=== PATIENT | female | born 1960 | race Caucasian/White ===

== ENCOUNTER 2018-09-13 02:42 | Emergency (ER) | payer MEDICARE ==
--- NOTE | 2018-09-13 03:50 | ER Document Report ---
ED General - General Chief Complaint: Leg Pain Stated Complaint: LEG PAIN Time Seen by Provider: 09/13/18 03:38 Notes: Patient is a pleasant 38-year-old female presents with complaint of pain over the lateral aspect of the left knee. She says she was working in house all day and on her feet all day long. She says she laid down on a couch and when she went to get up off the couch she had severe pain in the lateral aspect of her left knee. Since then she has had this continued pain and is worse whenever she tries to bear weight on her left leg. No numbness or weakness into the leg. No fevers. No swelling. No other complaints at this time. She denies a specific injury. Patient took Motrin at home without relief. TRAVEL OUTSIDE OF THE [place] IN LAST 30 DAYS: No - Related Data Allergies/Adverse Reactions: acetaminophen [From Percocet] Adverse Reaction (Verified 09/13/18 04:23) oxycodone [From Percocet] Adverse Reaction (Verified 09/13/18 04:23) Past Medical History - Social History Smoking Status: Current Every Day Smoker Frequency of alcohol use: None Drug Abuse: None Family History: Reviewed & Not Pertinent Review of Systems - Review of Systems Notes: My Normal Review Basic REVIEW OF SYSTEMS: CONSTITUTIONAL : Denies fever, chills, or sweats. Denies recent illness. MUSCULOSKELETAL: Pain over lateral left knee. SKIN: Denies rash or skin lesions. NEUROLOGICAL: Denies sensory or motor loss. ALL OTHER SYSTEMS REVIEWED AND NEGATIVE. Physical Exam - Vital signs Vitals: Temp Pulse Resp BP Pulse Ox 97.6 F 95 14 134/77 H 97 09/13/18 02:46 09/13/18 02:46 09/13/18 02:46 09/13/18 02:46 09/13/18 02:46 - Notes Notes: General Appearance: Well nourished, alert, cooperative, no acute distress, mild to moderate obvious discomfort. Vitals: reviewed, See vital signs table. Extremities: Patient has pain to palpation that is only over the fibular head. The remainder of the leg is nontender. There is no swelling or edema in the leg. No redness or abnormal warmth. She has good range of motion of her knee but has severe pain whenever I push over the fibular head. Good distal pulses in the left lower extremity. Skin: warm, dry, appropriate color, no rash Neuro: speech clear, oriented x 3, normal affect, responds appropriately to questions. Course - Re-evaluation Re-evalutation: 09/13/18 05:01 Patient has pain is pinpoint only over the fibular head. Suspect she has a superior talofibular ligament strain. The remainder of her leg is completely nontender. She has no pain to palpation over the posterior aspect of the leg. Think DVT is highly unlikely. She has no swelling or edema. There is no redness or abnormal warmth to cause concern for infection. I informed her that anti-inflammatories and ice packs would be the treatment of choice at this time. Encouraged her to stay nonweightbearing off that so that has time to rest. She refuses to use crutches and says she would prefer just to try and walk. Informed that she needs to follow-up with her doctor or the orthopedist in 1 week for reevaluation if she still having any pain. Patient to return to ER if there is any redness, swelling, abnormal warmth, signs of infection, or spreading of the pain. Patient agrees with plan will be discharged home. Dictation of this chart was performed using voice recognition software; therefore, there may be some unintended grammatical errors. - Vital Signs Vital signs: Temp Pulse Resp BP Pulse Ox 97.6 F 95 14 134/77 H 97 09/13/18 02:46 09/13/18 02:46 09/13/18 02:46 09/13/18 02:46 09/13/18 02:46 Discharge - Discharge Clinical Impression: Sprain of superior tibiofibular ligament Qualifiers: Encounter type: initial encounter Laterality: left Qualified Code(s): S83.62XA - Sprain of the superior tibiofibular joint and ligament, left knee, initial encounter Condition: Good Disposition: HOME, SELF-CARE Additional Instructions: Please take 600mg of Ibuprofen every 6 hours with food and tylenol 500mg every 4 hours. Please try to limit the amount of weight bearing you do on your leg. Please apply ice packs to the lateral aspect of your left knee for 20 minutes at a time. Please follow up with your doctor or the orthopedist (Dr. Proctor) for reevaluation in 1 week. Please return to the ER if you have worsening pain, redness, swelling, fevers, or feel that your symptoms are worsening. Please be aware that Gloria does have Tylenol (acetaminophen) in it. Please make sure you do not take more than 4000 mg of acetaminophen a day. Do not drive or care for children after you have taken this medication they will make you sleepy and sometimes impair judgment. Forms: Return to Work Referrals: TRISTAN PROCTOR MD [ACTIVE STAFF] - Follow up in 1 week
--- NOTE | 2018-09-13 04:26 | RADIOLOGY REPORT (SQ) ---
CLINICAL HISTORY: lateral knee pain COMPARISON: None. TECHNIQUE: XR KNEE 4 OR MORE VIEWS 09/13/2018 3:47 AM [employer] FINDINGS: There is no fracture. There is mild narrowing of the medial knee compartment. Soft tissues are unremarkable. IMPRESSION: No acute osseous findings.
[2018-09-13] MEDS ORDERED: HYDROCODONE/ACETAMINOPHEN 5-325 MG (6 TAB/ER DISP) PO PRN (04:54)
[2018-09-13 05:08] VITALS: BP 130/84
== END 2018-09-13 05:09 | disposition home or self-care (01) ==
LOC: ER 02:42
DX: S83.62XA Sprain of the superior tibiofibular joint and ligament, left knee, initial encounter (principal); X58.XXXA Exposure to other specified factors, initial encounter; F17.200 Nicotine dependence, unspecified, uncomplicated
CPT/HCPCS: 99283; 73564; A9270

== ENCOUNTER 2019-11-03 12:54 | Inpatient (IN) | payer MEDICARE, MEDICAID ==
--- NOTE | 2019-11-03 13:23 | EKG REPORT ---
SEVERITY:- ABNORMAL ECG - SINUS TACHYCARDIA RIGHT ATRIAL ABNORMALITY NONSPECIFIC ST-T CHANGES- INFERIOR LEADS : Confirmed by: Gamal Murcia MD 03-Nov-2019 13:22:08
--- NOTE | 2019-11-03 14:22 | ER Document Report ---
ED Medical Screen (RME) - General Chief Complaint: Chest Pain Stated Complaint: CHEST PAIN Time Seen by Provider: 11/03/19 14:18 Mode of Arrival: Ambulatory Information source: Patient Notes: 59-year-old female presents to ED for chest pain today. She states she started with a cough and cold congestion 2 weeks ago went to her doctor got put on some medicine and some antibiotics. She states Friday night she started with a migraine went to bed woke up during the night with chest pain fever chills and body aches. She states she has had chest pain body aches and fever since Friday. She states that she tried to go to the primary doctor again and they told her to please go to the emergency room because it sounded like she needed more than what they could give in her office. Patient is alert oriented, lungs clear to auscultation at this time. I have greeted and performed a rapid initial assessment of this patient. A comprehensive ED assessment and evaluation of the patient, analysis of test results and completion of medical decision making process will be conducted by an additional ED providers. TRAVEL OUTSIDE OF THE [place] IN LAST 30 DAYS: No - Related Data Allergies/Adverse Reactions: acetaminophen [From Percocet] Adverse Reaction (Verified 11/03/19 14:15) oxycodone [From Percocet] Adverse Reaction (Verified 11/03/19 14:15) Past Medical History Renal/ Medical History: Denies: Hx Peritoneal Dialysis Physical Exam - Vital signs Vitals: Temp Pulse Resp BP Pulse Ox 97.3 F 36 L 36 H 130/81 H 96 11/03/19 13:55 11/03/19 13:55 11/03/19 13:55 11/03/19 13:55 11/03/19 13:55 Course - Vital Signs Vital signs: Temp Pulse Resp BP Pulse Ox 97.3 F 36 L 36 H 130/81 H 96 11/03/19 13:55 11/03/19 13:55 11/03/19 13:55 11/03/19 13:55 11/03/19 13:55
--- NOTE | 2019-11-03 14:51 | RADIOLOGY REPORT (SQ) ---
EXAM DESCRIPTION: CHEST 2 VIEWS COMPLETED DATE/TIME: 11/03/2019 2:42 pm REASON FOR STUDY: Cough congestion fever chills chest pain COMPARISON: None. EXAM PARAMETERS: NUMBER OF VIEWS: Two views. TECHNIQUE: PA and lateral views of the chest were obtained.. RADIATION DOSE: NA LIMITATIONS: none FINDINGS: LUNGS AND PLEURA: Consolidative opacities in the right upper lobe. There is no sizable pl eural effusion or pneumothorax. MEDIASTINUM AND HILAR STRUCTURES: No mediastinal or hilar contour abnormality. HEART AND VASCULAR STRUCTURES: The cardiac silhouette and pulmonary vasculature are within normal pham its. BONES: No acute findings. HARDWARE: None in the chest. OTHER: No other finding. IMPRESSION: Consolidative opacities in the right upper lobe. Correlation with clinical findings is recommended to exclude a pneumonia. TECHNICAL DOCUMENTATION: JOB ID: [id number] 2010 [employer]- All Rights Reserved Reading location - IP/workstation name: [email or web address]
[2019-11-03 15:12] LABS: HEMATOCRIT 43.1 % (36.0-47.0); MEAN CORPUSCULAR HEMOGLOBIN 31.3 pg (27.0-33.4); MEAN CORPUSCULAR HGB CONC 34.9 g/dL (32.0-36.0); MEAN CORPUSCULAR VOLUME 90 fl (80-97); PLATELET COUNT 424 10^3/uL (150-450); RED CELL DISTRIBUTION WIDTH 13.1 % (11.5-14.0); WHITE BLOOD COUNT 29.5 10^3/uL (4.0-10.5)
[2019-11-03 15:19] LABS: APPEARANCE,URINE SLIGHTLY-CLOUDY; BILIRUBIN,URINE NEGATIVE (NEGATIVE); COLOR,URINE YELLOW; GLUCOSE, URINE 50 mg/dL (NEGATIVE); KETONES,URINE NEGATIVE (NEGATIVE); PROTEIN,URINE 100 mg/dL (NEGATIVE); URINE SPECIFIC GRAVITY 1.019; UROBILINOGEN,URINE NEGATIVE mg/dL (<2.0)
[2019-11-03 15:27] LABS: ALBUMIN 3.4 g/dL (3.5-5.0); ALKALINE PHOSPHATASE 149 U/L (38-126); ANION GAP 17 (5-19); ASPARTATE AMINO TRANSFERASE 18 U/L (14-36); BILIRUBIN,DIRECT 0.2 mg/dL (0.0-0.4); BILIRUBIN,TOTAL 0.4 mg/dL (0.2-1.3); BLOOD UREA NITROGEN 27 mg/dL (7-20); CARBON DIOXIDE 17 mmol/L (22-30); CHLORIDE 101 mmol/L (98-107); GLUCOSE 122 mg/dL (75-110); TOTAL PROTEIN 6.3 g/dL (6.3-8.2)
[2019-11-03 15:46] LABS: ABSOLUTE LYMPHOCYTES# (MANUAL) 0.6 10^3/uL (0.5-4.7); ABSOLUTE MONOCYTES # (MANUAL) 0.6 10^3/uL (0.1-1.4); BAND NEUTROPHILS % (MANUAL) 1 % (3-5); BASOPHILS % (MANUAL) 0 % (0-2); EOSINOPHILS % (MANUAL) 0 % (0-6); LYMPHOCYTES % (MANUAL) 2 % (13-45); MONOCYTES % (MANUAL) 2 % (3-13); PLATELET COMMENT ADEQUATE; SEGMENTED NEUTROPHILS % (MAN) 95 % (42-78); TOTAL CELLS COUNTED 100; TOXIC GRANULATION 1+
[2019-11-03] MEDS ORDERED: NORMAL SALINE 1000 ML 1,000 ML IV ONE (16:55)
[2019-11-03] MEDS ORDERED: IPRATROPIUM/ALBUTEROL 0.5-2.5 MG/3 ML AMPUL NEB ONE (17:06)
[2019-11-03] MEDS ORDERED: CEFTRIAXONE 1 GM/D5W RTU 1 GM/50 ML RTUPB IV ONE (17:06)
--- NOTE | 2019-11-03 17:31 | ER Document Report ---
Entered by PRESTON CARLIN SCRIBE 11/03/19 [id number] Acting as scribe for:JOSEPH NUNN MD ED General - General Chief Complaint: Headache Stated Complaint: CHEST PAIN Time Seen by Provider: 11/03/19 14:18 Mode of Arrival: Ambulatory Information source: Patient Notes: 59-year-old female presents to the emergency department with migraine and chest pain that has been going on for 3 days. Patient states that her symptoms started with a migraine and that night she started having right upper chest pain with body aches. Patient has had a poor appetite with no food or fluid uptake for 2 days. Patient denies cough. Patient reports seeing PCP last week for a UTI. Due to congestion, she was treated for an upper respiratory infection. Patient is not up to date on seasonal influenza vaccine. Patient has not traveled out of country recently. TRAVEL OUTSIDE OF THE [place] IN LAST 30 DAYS: No - Related Data Allergies/Adverse Reactions: oxycodone [From Percocet] Adverse Reaction (Verified 11/03/19 14:15) Home Medications: cymbalta. xanax. inhaler Past Medical History - General Information source: Patient - Social History Smoking Status: Current Every Day Smoker Cigarette use (# per day): Yes - 1 pack per day Chew tobacco use (# tins/day): No Smoking Education Provided: No Frequency of alcohol use: None Drug Abuse: None Family History: Reviewed & Not Pertinent Patient has suicidal ideation: No Patient has homicidal ideation: No Pulmonary Medical History: Reports: Hx COPD Psychiatric Medical History: Reports: Hx Depression Past Surgical History: Reports: Hx Inguinal Hernia, Hx Tonsillectomy, Hx Tubal Ligation - Immunizations History of Influenza Vaccine for 06/2019 - 10/2019 Season: No Review of Systems - Review of Systems Constitutional: No symptoms reported EENT: No symptoms reported Cardiovascular: See HPI, Chest pain Respiratory: See HPI. denies: Cough Gastrointestinal: No symptoms reported Genitourinary: No symptoms reported Female Genitourinary: No symptoms reported Musculoskeletal: No symptoms reported Skin: No symptoms reported Hematologic/Lymphatic: No symptoms reported Neurological/Psychological: See HPI, Headaches -: Yes All other systems reviewed and negative Physical Exam - Vital signs Vitals: Temp Pulse Resp BP Pulse Ox 97.3 F 121 H 36 H 130/81 H 96 11/03/19 13:55 11/03/19 13:55 11/03/19 13:55 11/03/19 13:55 11/03/19 13:55 - Notes Notes: Physical Exam: General: Alert, appears well. HEENT: Normocephalic. Atraumatic. PERRL. Extraocular movements intact. Oropharynx clear. Neck: Supple. Non-tender. Respiratory: Tachypnea. Wheezes and Rhonchi bilaterally. Cardiovascular: Tachycardic. Abdominal: Normal Inspection. Non-tender. No distension. Normal Bowel Sounds. Back: No gross abnormalities. Extremities: Moves all four extremities. Upper extremities: Normal inspection. Normal ROM. Lower extremities: Normal inspection. No edema. Normal ROM. Neurological: Normal cognition. AAOx4. Normal speech. Psychological: Normal affect. Normal Mood. Skin: Warm. Dry. Normal color. Course - Vital Signs Vital signs: Temp Pulse Resp BP Pulse Ox 98.0 F 92 18 120/58 L 100 11/04/19 23:00 11/04/19 23:00 11/04/19 23:00 11/04/19 23:00 11/04/19 23:00 - Laboratory Result Diagrams: 11/04/19 05:13 11/04/19 05:13 Laboratory results interpreted by me: 11/03/19 11/03/19 11/03/19 14:47 14:47 14:47 WBC 29.5 H Seg Neuts % (Manual) 95 H Band Neutrophils % 1 L Lymphocytes % (Manual) 2 L Monocytes % (Manual) 2 L Abs Neuts (Manual) 28.3 H Sodium 135.2 L Carbon Dioxide 17 L BUN 27 H Creatinine 2.13 H Est GFR ( Amer) 29 L Est GFR (MDRD) Non-Af 24 L Glucose 122 H Alkaline Phosphatase 149 H Albumin 3.4 L Lipase 20.0 L Urine Protein 100 H Urine Glucose (UA) 50 H Urine Blood SMALL H - Diagnostic Test Radiology reviewed: Image reviewed, Reports reviewed - Chest x-ray shows COPD with a large right upper lobe consolidation opacity - EKG Interpretation by Me EKG shows normal: Sinus rhythm, [place], Intervals, QRS Complexes, ST-T Waves Rate: Tachycardia - 110 P Waves: [place] When compared to previous EKG there are: Previous EKG unavailable - Consults Dr. Hayward Time consulted: 17:00 Consulted provider: will come to ER Critical Care Note - Critical Care Note Total time excluding time spent on procedures (mins): 35 Discharge - Discharge Clinical Impression: COPD with exacerbation, Dehydration, Acute kidney injury, Tachycardia, Tachypnea Pneumonia Qualifiers: Pneumonia type: due to unspecified organism Laterality: right Lung location: upper lobe of lung Qualified Code(s): J18.9 - Pneumonia, unspecified organism Leukocytosis Qualifiers: Leukocytosis type: bandemia Qualified Code(s): D72.825 - Bandemia Condition: Stable Disposition: ADMITTED INPATIENT Admitting Provider: Mainor (Hospitalist) Unit Admitted: Medical Floor I personally performed the services described in the documentation, reviewed and edited the documentation which was dictated to the scribe in my presence, and it accurately records my words and actions.
[2019-11-03] MEDS ORDERED: PROMETHAZINE HCL INJ 25 MG/1 ML VIAL IV PRN (17:46)
[2019-11-03] MEDS ORDERED: IPRATROPIUM/ALBUTEROL 0.5-2.5 MG/3 ML AMPUL NEB PRN (17:46)
[2019-11-03] MEDS ORDERED: ONDANSETRON HCL INJ/PF 4 MG/2 ML SDV IV PRN (17:46)
[2019-11-03] MEDS ORDERED: MORPHINE SULFATE 10 MG/ML INJ IV PRN (17:51)
[2019-11-03] MEDS ORDERED: HYDRALAZINE HCL INJ/PF 20 MG/1 ML SDV IV PRN (18:00)
[2019-11-03] MEDS ORDERED: METOPROLOL TARTRATE PF/INJ 5 MG/5 ML SDV IV PRN (18:00)
[2019-11-03] MEDS ORDERED: LORAZEPAM INJ 2 MG/1 ML VIAL IV PRN (18:01)
[2019-11-03] MEDS ORDERED: PIPERACILLIN/TAZOBACTAM 3.375 GM VIAL IV ONE (18:05)
--- NOTE | 2019-11-03 18:07 | PDOC H&P ---
History of Present Illness Admission Date/PCP: 11/03/19 17:50 History of Present Illness: ANETTE BOWMAN is a 59 year old female past medical history of tobacco abuse, non-oxygen dependent COPD presenting to ED complaining of right-sided pleuritic chest pain, fever and chills. Patient is stating that about 3 weeks ago she was having foul-smelling urine, went to PCP sample was taken, culture came back negative, and the same time she was noted to be coughing and feeling congested, was a started cefdinir and steroids and albuterol inhaler, she felt somewhat better however after an tibiotic finished she started to notice recurrence of nonproductive cough associated with flulike symptoms, some [id number] medication did not feel any better, the next day started feeling right-sided sharp, pleuritic chest pain, worse with breathing and movement, subjective fever and chills, one episode of vomiting and diarrhea with nausea and persistent low appetite. In ED she was found to have significant neutrophilic leukocytosis, chest x-ray positive for consolidation in the right upper lobe and elevated BUN and creatinine. Hospitalist was consulted for admission. Past Medical History Pulmonary Medical History: Reports: Chronic Obstructive Pulmonary Disease (COPD) Psychiatric Medical History: Reports: Depression Past Surgical History Past Surgical History: Reports: Tonsillectomy, Tubal Ligation Social History Smoking Status: Current Every Day Smoker Electronic Cigarette use?: No Family History Family History: Reviewed & Not Pertinent Parental Family History Reviewed: Yes Children Family History Reviewed: Yes Sibling(s) Family History Reviewed.: Yes Medication/Allergy Home Medications: Albuterol Sulfate [Ventolin Hfa 8 gm Mdi] 2 puff IH Q6HP PRN 11/03/19 Alprazolam [Xanax 0.5 mg Tablet] 0.5 mg PO QIDP PRN 11/03/19 Duloxetine HCl [Cymbalta] 60 mg PO BID 11/03/19 Fluticasone/Umeclidin/Vilanter [Trelegy 100-62.5-25 Mcg Ellipta 14 Dose/Dpi] 1 puff IH DAILY 11/03/19 Lurasidone HCl [Latuda 60 mg Tablet] 60 mg PO DAILY 11/03/19 Allergies/Adverse Reactions: oxycodone [From Percocet] Adverse Reaction (Verified 03/04/20 14:15) Review of Systems Review of Systems: as per hpi Physical Exam Vital Signs: Temp Pulse Resp BP Pulse Ox 97.3 F 121 H 36 H 130/81 H 96 11/03/19 13:55 11/03/19 13:55 11/03/19 13:55 11/03/19 13:55 11/03/19 13:55 Intake & Output 11/02/19 11/03/19 11/04/19 06:59 06:59 06:59 Weight 62.7 kg General appearance: PRESENT: no acute distress, well-developed, well-nourished Head exam: PRESENT: atraumatic, normocephalic Neck exam: ABSENT: carotid bruit, JVD, lymphadenopathy, thyromegaly Respiratory exam: PRESENT: clear to auscultation fabiana, symmetrical, tachypnea, other - Shallow breathing.. ABSENT: rales, rhonchi, wheezes Cardiovascular exam: PRESENT: RRR, other - TTP right anterior chest.. ABSENT: diastolic murmur, rubs, systolic murmur GI/Abdominal exam: PRESENT: normal bowel sounds, soft. ABSENT: distended, guarding, mass, organolmegaly, rebound, tenderness Neurological exam: PRESENT: alert, awake, oriented to person, oriented to place, oriented to time, oriented to situation, CN II-XII grossly intact. ABSENT: motor sensory deficit Skin exam: PRESENT: dry, intact, warm. ABSENT: cyanosis, rash Results Laboratory Results: 11/03/19 14:47 11/03/19 14:47 11/03/19 11/03/19 11/03/19 14:47 14:47 14:47 WBC 29.5 H RBC 4.80 Hgb 15.0 Hct 43.1 MCV 90 MCH 31.3 MCHC 34.9 RDW 13.1 Plt Count 424 Seg Neutrophils % Not Reportable Sodium 135.2 L Potassium 4.0 Chloride 101 Carbon Dioxide 17 L Anion Gap 17 BUN 27 H Creatinine 2.13 H Est GFR ( Amer) 29 L Glucose 122 H Calcium 9.0 Total Bilirubin 0.4 AST 18 Alkaline Phosphatase 149 H Total Protein 6.3 Albumin 3.4 L Lipase 20.0 L Urine Color YELLOW Urine Appearance SLIGHTLY-CLOUDY Urine pH 5.0 Ur Specific [place] 1.019 Urine Protein 100 H Urine Glucose (UA) 50 H Urine Ketones NEGATIVE Urine Blood SMALL H Urine RBC (Auto) 1 11/03/19 14:47 Troponin I < 0.012 Impressions: Chest X-Ray 11/03/19 14:23 IMPRESSION: Consolidative opacities in the right upper lobe. Correlation with clinical findings is recommended to exclude a pneumonia. Assessment and Plan - Diagnosis (1) Pneumonia Qualifiers: Laterality: right Lung location: upper lobe of lung Is this a current diagnosis for this admission?: Yes Plan: Most likely community-acquired due to gram-positive cocci including Streptococcus pneumonia. Presented with pleuritic chest pain, tachypnea, neutrophilic leukocytosis, productive cough, CXR right upper lobe consolidation. Failed outpatient antibiotic therapy. Rapid flu negative. Admit to floor, check for Haemophilus aneurysm type A/B, broad-spectrum empiric IV antibiotics, sputum culture, blood culture. (2) Chronic obstructive pulmonary disease with acute exacerbation Is this a current diagnosis for this admission?: Yes Plan: Acutely exacerbated mostly due to underlying pneumonia. Duo nebs, pulmonary toileting, flutter valve, incentive spirometry, empiric IV antibiotics, PRN BiPAP. (3) Acute kidney injury Is this a current diagnosis for this admission?: Yes Plan: Prerenal most like due to low p.o. intake. Admit to floor, cautious volume resuscitation guided by volume status. Monitor volume status and electrolytes replace as needed. Avoid nephrotoxic meds. (4) Dehydration Is this a current diagnosis for this admission?: Yes Plan: Most likely due to low p.o. intake complicated by recent vomiting. Volume resuscitation guided by volume status. Monitor vitals.
[2019-11-03] MEDS ORDERED: ALPRAZOLAM 0.5 MG TABLET PO PRN (18:08)
[2019-11-03] MEDS: PIPERACILLIN SODIUM/TAZOBACTAM 3.375 GM in NORMAL SALINE 100 ML IV SCH ×2 (18:14→23:50)
[2019-11-03] MEDS: NORMAL SALINE 1000 ML 1,000 ML IV PRN (19:57)
[2019-11-03] MEDS: DOCUSATE SODIUM 100 MG CAPSULE PO SCH (20:04)
[2019-11-03] MEDS: PANTOPRAZOLE SODIUM 40 MG TABLET.DR PO SCH (20:04)
[2019-11-03] MEDS: NICOTINE 14 MG/24 HR PATCH.TD24 TD SCH (20:04)
[2019-11-03 20:21] LABS: A TYPE INFLUENZA AG NEGATIVE (NEGATIVE); B INFLUENZA AG NEGATIVE (NEGATIVE)
[2019-11-03] MEDS: IPRATROPIUM/ALBUTEROL 0.5-2.5 MG/3 ML AMPUL NEB SCH (20:27)
[2019-11-03] MEDS: DULOXETINE HCL 30 MG CAPSULE.DR PO SCH (21:29)
[2019-11-03] MEDS ORDERED: ACETAMINOPHEN 325 MG TABLET ONE (23:44)
[2019-11-04] MEDS ORDERED: MORPHINE SULFATE 10 MG/ML INJ IV ONE (01:00)
[2019-11-04] MEDS: NORMAL SALINE 1000 ML 1,000 ML IV PRN ×3 (02:48→17:19)
[2019-11-04] MEDS: TEMAZEPAM 15 MG CAPSULE PO PRN (02:50)
[2019-11-04] MEDS: PIPERACILLIN SODIUM/TAZOBACTAM 3.375 GM in NORMAL SALINE 100 ML IV SCH ×3 (05:04→17:14)
[2019-11-04] MEDS: PANTOPRAZOLE SODIUM 40 MG TABLET.DR PO SCH ×2 (05:04→17:14)
[2019-11-04 05:46] LABS: ABSOLUTE EOSINOPHILS # (AUTO) 0.1 10^3/uL (0.0-0.6); ABSOLUTE LYMPHOCYTES (AUTO) 1.6 10^3/uL (0.5-4.7); ABSOLUTE MONOCYTES (AUTO) 0.8 10^3/uL (0.1-1.4); ABSOLUTE NEUT (AUTO) 16.4 10^3/uL (1.7-8.2); BASOPHILS % (AUTO) 0.2 % (0-2); EOSINOPHILS % (AUTO) 0.3 % (0-6); HEMATOCRIT 34.3 % (36.0-47.0); LYMPHOCYTES % (AUTO) 8.6 % (13-45); MEAN CORPUSCULAR HEMOGLOBIN 30.4 pg (27.0-33.4); MEAN CORPUSCULAR HGB CONC 34.2 g/dL (32.0-36.0); MEAN CORPUSCULAR VOLUME 89 fl (80-97); MONOCYTES % (AUTO) 4.1 % (3-13); PLATELET COUNT 362 10^3/uL (150-450); RED BLOOD COUNT 3.87 10^6/uL (3.72-5.28); RED CELL DISTRIBUTION WIDTH 13.3 % (11.5-14.0); SEGMENTED NEUTROPHILS % (AUTO) 86.8 % (42-78); TOTAL CELLS COUNTED % (AUTO) 100 %; WHITE BLOOD COUNT 18.9 10^3/uL (4.0-10.5)
[2019-11-04 05:51] LABS: HEMOGLOBIN 11.7 g/dL (12.0-15.5)
[2019-11-04 06:01] LABS: ALBUMIN 2.5 g/dL (3.5-5.0); ALKALINE PHOSPHATASE 91 U/L (38-126); ANION GAP 12 (5-19); ASPARTATE AMINO TRANSFERASE 14 U/L (14-36); BILIRUBIN,DIRECT 0.4 mg/dL (0.0-0.4); BILIRUBIN,TOTAL 0.4 mg/dL (0.2-1.3); BLOOD UREA NITROGEN 29 mg/dL (7-20); CALCIUM 7.6 mg/dL (8.4-10.2); CARBON DIOXIDE 16 mmol/L (22-30); CHLORIDE 110 mmol/L (98-107); CHOLESTEROL 130.16 mg/dL (0-200); GLUCOSE 93 mg/dL (75-110); POTASSIUM 3.1 mmol/L (3.6-5.0); TOTAL PROTEIN 5.1 g/dL (6.3-8.2); TRIGLYCERIDES 264 mg/dL (<150)
[2019-11-04 06:10] LABS: VLDL CHOLESTEROL 52.8 mg/dL (10-31)
[2019-11-04 06:12] LABS: DIRECT LDL 48 mg/dL (<100)
[2019-11-04] MEDS: IPRATROPIUM/ALBUTEROL 0.5-2.5 MG/3 ML AMPUL NEB SCH ×3 (08:29→20:09)
[2019-11-04] MEDS ORDERED: POTASSIUM CHLORIDE 10 MEQ TABLET.ER PO ONE (08:30)
[2019-11-04] MEDS: FLUTICASONE/UMECLIDIN/VILANTER 100-62.5-25 MCG/DOSE IH SCH (10:22)
[2019-11-04] MEDS: LURASIDONE HCL 60 MG TABLET PO SCH (10:22)
[2019-11-04] MEDS: NICOTINE 14 MG/24 HR PATCH.TD24 TD SCH (10:22)
[2019-11-04] MEDS: DOCUSATE SODIUM 100 MG CAPSULE PO SCH ×2 (10:22→17:14)
[2019-11-04] MEDS: DULOXETINE HCL 30 MG CAPSULE.DR PO SCH ×2 (10:22→21:52)
[2019-11-04] MEDS: ENOXAPARIN SODIUM INJ 30 MG/0.3 ML DISP.SYRIN SUBCUT SCH (10:29)
--- NOTE | 2019-11-04 12:40 | PDOC PROGRESS REPORT ---
Subjective Progress Note for:: 11/04/19 Subjective:: ANETTE BOWMAN is a 59 year old female past medical history of tobacco abuse, non-oxygen dependent COPD presenting to ED complaining of right-sided pleuritic chest pain, fever and chills. Patient is stating that about 3 weeks ago she was having foul-smelling urine, went to PCP sample was taken, culture came back negative, and the same time she was noted to be coughing and feeling congested, was a started cefdinir and steroids and albuterol inhaler, she felt somewhat better however after antibiotic finished she started to notice recurrence of nonproductive cough associated with flulike symptoms, some rpas-qov-ngykiiz medication did not feel any better, the next day started feeling right-sided sharp, pleuritic chest pain, worse with breathing and movement, subjective fever and chills, one episode of vomiting and diarrhea with nausea and persistent low appetite. In ED she was found to have significant neutrophilic leukocytosis, chest x-ray positive for consolidation in the right upper lobe and elevated BUN and creatinine. Hospitalist was consulted for admission. 11/04/2019. No acute events overnight. Patient denies having any fever overnight however still complaining of productive cough and right sided pleuritic chest pain, denies any fever, chills, nausea, vomiting, diarrhea, constipation or any urinary symptoms. Reason For Visit: PNEUMONIA,IGLESIA Physical Exam Vital Signs: Temp Pulse Resp BP Pulse Ox 97.4 F 85 18 122/69 93 11/04/19 07:53 11/04/19 08:29 11/04/19 08:29 11/04/19 07:53 11/04/19 08:29 Intake & Output 11/03/19 11/04/19 11/05/19 06:59 06:59 06:59 Intake Total 2350 1000 Output Total 1000 Balance 2350 0 Weight 63.4 kg 63.4 kg General appearance: PRESENT: no acute distress, well-developed, well-nourished Head exam: PRESENT: atraumatic, normocephalic Respiratory exam: PRESENT: clear to auscultation fabiana, wheezes - Right upper lung. ABSENT: rales, rhonchi Cardiovascular exam: PRESENT: RRR. ABSENT: diastolic murmur, rubs, systolic murmur GI/Abdominal exam: PRESENT: normal bowel sounds, soft. ABSENT: distended, guarding, mass, organolmegaly, rebound, tenderness Neurological exam: PRESENT: alert, awake, oriented to person, oriented to place, oriented to time, oriented to situation, CN II-XII grossly intact. ABSENT: motor sensory deficit Results Laboratory Results: 11/04/19 05:13 11/04/19 05:13 11/03/19 11/03/19 11/03/19 14:47 14:47 14:47 WBC 29.5 H RBC 4.80 Hgb 15.0 Hct 43.1 MCV 90 MCH 31.3 MCHC 34.9 RDW 13.1 Plt Count 424 Seg Neutrophils % Not Reportable Sodium 135.2 L Potassium 4.0 Chloride 101 Carbon Dioxide 17 L Anion Gap 17 BUN 27 H Creatinine 2.13 H Est GFR ( Amer) 29 L Glucose 122 H Lactic Acid Calcium 9.0 Magnesium Total Bilirubin 0.4 AST 18 Alkaline Phosphatase 149 H Total Protein 6.3 Albumin 3.4 L Triglycerides Cholesterol LDL Cholesterol Direct VLDL Cholesterol HDL Cholesterol Lipase 20.0 L TSH PTH Intact Urine Color YELLOW Urine Appearance SLIGHTLY-CLOUDY Urine pH 5.0 Ur Specific [place] 1.019 Urine Protein 100 H Urine Glucose (UA) 50 H Urine Ketones NEGATIVE Urine Blood SMALL H Urine RBC (Auto) 1 11/03/19 11/03/19 11/04/19 17:15 18:46 05:13 WBC 18.9 H RBC 3.87 Hgb 11.7 L D Hct 34.3 L MCV 89 MCH 30.4 MCHC 34.2 RDW 13.3 Plt Count 362 Seg Neutrophils % 86.8 H Sodium Potassium Chloride Carbon Dioxide Anion Gap BUN Creatinine Est GFR ( Amer) Glucose Lactic Acid 1.8 Calcium Magnesium Total Bilirubin AST Alkaline Phosphatase Total Protein Albumin Triglycerides Cholesterol LDL Cholesterol Direct VLDL Cholesterol HDL Cholesterol Lipase TSH PTH Intact 73.7 H Urine Color Urine Appearance Urine pH Ur Specific [place] Urine Protein Urine Glucose (UA) Urine Ketones Urine Blood Urine RBC (Auto) 11/04/19 11/04/19 05:13 05:13 WBC RBC Hgb Hct MCV MCH MCHC RDW Plt Count Seg Neutrophils % Sodium 138.1 Potassium 3.1 L Chloride 110 H Carbon Dioxide 16 L Anion Gap 12 BUN 29 H Creatinine 1.95 H Est GFR ( Amer) 32 L Glucose 93 Lactic Acid Calcium 7.6 L Magnesium 2.2 Total Bilirubin 0.4 AST 14 Alkaline Phosphatase 91 Total Protein 5.1 L Albumin 2.5 L Triglycerides 264 H Cholesterol 130.16 LDL Cholesterol Direct 48 VLDL Cholesterol 52.8 H HDL Cholesterol 16 L Lipase TSH 1.92 PTH Intact Urine Color Urine Appearance Urine pH Ur Specific [place] Urine Protein Urine Glucose (UA) Urine Ketones Urine Blood Urine RBC (Auto) 11/03/19 17:15 Blood Blood Culture (PCR) - Final 11/03/19 14:47 Troponin I < 0.012 Impressions: Chest X-Ray 11/03/19 14:23 IMPRESSION: Consolidative opacities in the right upper lobe. Correlation with clinical findings is recommended to exclude a pneumonia. Assessment and Plan - Diagnosis (1) Pneumonia Qualifiers: Laterality: right Lung location: upper lobe of lung Qualified Code(s): J18.9 - Pneumonia, unspecified organism Is this a current diagnosis for this admission?: Yes Plan: Most likely community-acquired due to gram-positive cocci including Streptococcus pneumonia. Presented with pleuritic chest pain, tachypnea, neutrophilic leukocytosis, productive cough, CXR right upper lobe consolidation. Failed outpatient antibiotic therapy. Rapid flu negative. Day 2 IV antibiotics. Day 2 IV Zosyn. Received 1 dose of ceftriaxone on admission. Continue broad-spectrum empiric IV antibiotics. Follow-up sputum and blood culture. (2) Chronic obstructive pulmonary disease with acute exacerbation Is this a current diagnosis for this admission?: Yes Plan: Acutely exacerbated mostly due to underlying pneumonia. Duo nebs, pulmonary toileting, flutter valve, incentive spirometry, empiric IV antibiotics, PRN BiPAP. (3) Acute kidney injury Is this a current diagnosis for this admission?: Yes Plan: Mild improvement. Prerenal most like due to low p.o. intake. Elevated PTH will suggest patient may have had some CKD. Admit to floor, cautious volume resuscitation guided by volume status. Monitor volume status and electrolytes replace as needed. Avoid nephrotoxic meds. (4) Dehydration Is this a current diagnosis for this admission?: Yes Plan: Volume replete. Most likely due to low p.o. intake complicated by recent vomiting. Volume resuscitation guided by volume status. Monitor vitals.
[2019-11-05] MEDS: PIPERACILLIN SODIUM/TAZOBACTAM 3.375 GM in NORMAL SALINE 100 ML IV SCH ×5 (00:04→23:18)
[2019-11-05] MEDS: NORMAL SALINE 1000 ML 1,000 ML IV PRN ×2 (00:04→09:56)
[2019-11-05] MEDS: PANTOPRAZOLE SODIUM 40 MG TABLET.DR PO SCH ×2 (05:01→17:53)
[2019-11-05] MEDS: IPRATROPIUM/ALBUTEROL 0.5-2.5 MG/3 ML AMPUL NEB SCH ×3 (08:26→20:18)
[2019-11-05 09:10] LABS: ABSOLUTE EOSINOPHILS # (AUTO) 0.1 10^3/uL (0.0-0.6); ABSOLUTE LYMPHOCYTES (AUTO) 1.3 10^3/uL (0.5-4.7); ABSOLUTE MONOCYTES (AUTO) 0.7 10^3/uL (0.1-1.4); ABSOLUTE NEUT (AUTO) 12.7 10^3/uL (1.7-8.2); BASOPHILS % (AUTO) 0.2 % (0-2); EOSINOPHILS % (AUTO) 0.7 % (0-6); HEMATOCRIT 30.8 % (36.0-47.0); HEMOGLOBIN 10.6 g/dL (12.0-15.5); LYMPHOCYTES % (AUTO) 8.7 % (13-45); MEAN CORPUSCULAR HEMOGLOBIN 30.9 pg (27.0-33.4); MEAN CORPUSCULAR HGB CONC 34.3 g/dL (32.0-36.0); MEAN CORPUSCULAR VOLUME 90 fl (80-97); MONOCYTES % (AUTO) 4.6 % (3-13); PLATELET COUNT 382 10^3/uL (150-450); RED BLOOD COUNT 3.42 10^6/uL (3.72-5.28); SEGMENTED NEUTROPHILS % (AUTO) 85.8 % (42-78); TOTAL CELLS COUNTED % (AUTO) 100 %; WHITE BLOOD COUNT 14.8 10^3/uL (4.0-10.5)
[2019-11-05 09:26] LABS: ANION GAP 11 (5-19); BLOOD UREA NITROGEN 17 mg/dL (7-20); CALCIUM 8.2 mg/dL (8.4-10.2); CARBON DIOXIDE 13 mmol/L (22-30); CHLORIDE 115 mmol/L (98-107); GLUCOSE 107 mg/dL (75-110); POTASSIUM 3.6 mmol/L (3.6-5.0)
[2019-11-05] MEDS: DULOXETINE HCL 30 MG CAPSULE.DR PO SCH ×2 (09:56→22:01)
[2019-11-05] MEDS: LURASIDONE HCL 60 MG TABLET PO SCH (09:56)
[2019-11-05] MEDS: FLUTICASONE/UMECLIDIN/VILANTER 100-62.5-25 MCG/DOSE IH SCH (09:56)
[2019-11-05] MEDS: ENOXAPARIN SODIUM INJ 30 MG/0.3 ML DISP.SYRIN SUBCUT SCH (09:57)
[2019-11-05] MEDS: DOCUSATE SODIUM 100 MG CAPSULE PO SCH ×2 (09:57→17:53)
[2019-11-05] MEDS: NICOTINE 14 MG/24 HR PATCH.TD24 TD SCH (09:57)
[2019-11-05] MEDS ORDERED: ACETYLCYSTEINE 20% SOLN 800 MG/4 ML VIAL.NEB NEB ONE (10:30)
[2019-11-05] MEDS ORDERED: GUAIFENESIN/CODEINE PHOS 100-10 MG/ 5 ML UDC PO ONE (11:00)
[2019-11-05] MEDS: LIDOCAINE 5% (700 MG) TRANSDERMAL ADH..PATCH TP SCH (11:26)
[2019-11-05] MEDS: GUAIFENESIN 600 MG TABLET.SA PO SCH ×2 (11:26→22:01)
--- NOTE | 2019-11-05 15:36 | PDOC PROGRESS REPORT ---
Subjective Progress Note for:: 11/05/19 Subjective:: ANETTE BOWMAN is a 59 year old female past medical history of tobacco abuse, non-oxygen dependent COPD presenting to ED complaining of right-sided pleuritic chest pain, fever and chills. Patient is stating that about 3 weeks ago she was having foul-smelling urine, went to PCP sample was taken, culture came back negative, and the same time she was noted to be coughing and feeling congested, was a started cefdinir and steroids and albuterol inhaler, she felt somewhat better however after antibiotic finished she started to notice recurrence of nonproductive cough associated with flulike symptoms, some gorm-ilg-cackvhq medication did not feel any better, the next day started feeling right-sided sharp, pleuritic chest pain, worse with breathing and movement, subjective fever and chills, one episode of vomiting and diarrhea with nausea and persistent low appetite. In ED she was found to have significant neutrophilic leukocytosis, chest x-ray positive for consolidation in the right upper lobe and elevated BUN and creatinine. Hospitalist was consulted for admission. 11/04/2019. No acute events overnight. Patient denies having any fever overnight however still complaining of productive cough and right sided pleuritic chest pain, denies any fever, chills, nausea, vomiting, diarrhea, constipation or any urinary symptoms. 11/05/2019. No acute events overnight. Patient is still complaining of productive cough with right-sided anterior chest pleuritic chest pain, otherwise denies any shortness of breath, nausea, vomiting, diarrhea, constipation or any urinary symptoms. Reason For Visit: PNEUMONIA,IGLESIA Physical Exam Vital Signs: Temp Pulse Resp BP Pulse Ox 98.0 F 84 18 132/73 H 92 11/05/19 11:54 11/05/19 14:08 11/05/19 14:08 11/05/19 11:54 11/05/19 14:08 Intake & Output 11/04/19 11/05/19 11/06/19 06:59 06:59 06:59 Intake Total 2350 5404 1942 Output Total 2800 Balance 2350 2604 1942 Weight 63.4 kg 68.4 kg General appearance: PRESENT: mild distress Head exam: PRESENT: atraumatic, normocephalic Respiratory exam: PRESENT: clear to auscultation fabiana, symmetrical, tachypnea, wheezes - Right upper lobe, other - Shallow breathing. TTP over anterior right chest.. ABSENT: rales, rhonchi Cardiovascular exam: PRESENT: RRR. ABSENT: diastolic murmur, rubs, systolic murmur Neurological exam: PRESENT: alert, awake, oriented to person, oriented to place, oriented to time, oriented to situation, CN II-XII grossly intact. ABSENT: motor sensory deficit Results Laboratory Results: 11/05/19 08:41 11/05/19 08:41 11/05/19 11/05/19 08:41 08:41 WBC 14.8 H RBC 3.42 L Hgb 10.6 L Hct 30.8 L MCV 90 MCH 30.9 MCHC 34.3 RDW 14.0 Plt Count 382 Seg Neutrophils % 85.8 H Sodium 138.9 Potassium 3.6 Chloride 115 H Carbon Dioxide 13 L Anion Gap 11 BUN 17 Creatinine 1.35 H Est GFR ( Amer) 49 L Glucose 107 Calcium 8.2 L 11/03/19 17:15 Blood Blood Culture (PCR) - Final 11/03/19 19:30 Sputum Gram Stain - Final 11/03/19 19:30 Sputum Sputum Culture - Final Haemophilus Influenzae Morax.(Branhamella)Catarrhalis Reduced Normal Bere 11/03/19 14:47 Troponin I < 0.012 Impressions: Chest X-Ray 11/03/19 14:23 IMPRESSION: Consolidative opacities in the right upper lobe. Correlation with clinical findings is recommended to exclude a pneumonia. Assessment and Plan - Diagnosis (1) Pneumonia Qualifiers: Laterality: right Lung location: upper lobe of lung Is this a current diagnosis for this admission?: Yes Plan: Due to Haemophilus influenza. Urine culture positive for Haemophilus influenza. Presented with pleuritic chest pain, tachypnea, neutrophilic leukocytosis, productive cough, CXR right upper lobe consolidation. Failed outpatient antibiotic therapy. Rapid flu negative. Continue antibiotics. Will switch to p.o. upon discharge. (2) Chronic obstructive pulmonary disease with acute exacerbation Is this a current diagnosis for this admission?: Yes Plan: Improving. SPO2 WNL on RA. Wheezing on physical evaluation right lung upper lobe. Acutely exacerbated mostly due to underlying pneumonia. Continue duo nebs, pulmonary toileting, flutter valve, incentive spirometry, empiric IV antibiotics, PRN BiPAP. (3) Acute kidney injury Is this a current diagnosis for this admission?: Yes Plan: Prerenal most like due to low p.o. intake. Admit to floor, cautious volume resuscitation guided by volume status. Monitor volume status and electrolytes replace as needed. Avoid nephrotoxic meds. (4) Dehydration Is this a current diagnosis for this admission?: Yes Plan: Volume replete. Most likely due to low p.o. intake complicated by recent vomiting.
[2019-11-05] MEDS: ACETAMINOPHEN 325 MG TABLET PO PRN (22:01)
[2019-11-05] MEDS: TEMAZEPAM 15 MG CAPSULE PO PRN (22:01)
[2019-11-06 05:12] LABS: ABSOLUTE BASOPHILS # (AUTO) 0.1 10^3/uL (0.0-0.2); ABSOLUTE EOSINOPHILS # (AUTO) 0.1 10^3/uL (0.0-0.6); ABSOLUTE LYMPHOCYTES (AUTO) 1.3 10^3/uL (0.5-4.7); ABSOLUTE MONOCYTES (AUTO) 1.1 10^3/uL (0.1-1.4); ABSOLUTE NEUT (AUTO) 8.9 10^3/uL (1.7-8.2); BASOPHILS % (AUTO) 0.6 % (0-2); EOSINOPHILS % (AUTO) 0.8 % (0-6); HEMATOCRIT 31.8 % (36.0-47.0); LYMPHOCYTES % (AUTO) 11.2 % (13-45); MEAN CORPUSCULAR HEMOGLOBIN 30.7 pg (27.0-33.4); MEAN CORPUSCULAR HGB CONC 34.5 g/dL (32.0-36.0); MEAN CORPUSCULAR VOLUME 89 fl (80-97); MONOCYTES % (AUTO) 9.6 % (3-13); PLATELET COUNT 387 10^3/uL (150-450); RED BLOOD COUNT 3.57 10^6/uL (3.72-5.28); RED CELL DISTRIBUTION WIDTH 13.9 % (11.5-14.0); SEGMENTED NEUTROPHILS % (AUTO) 77.8 % (42-78); TOTAL CELLS COUNTED % (AUTO) 100 %; WHITE BLOOD COUNT 11.5 10^3/uL (4.0-10.5)
[2019-11-06 05:31] LABS: ALBUMIN 2.5 g/dL (3.5-5.0); ALKALINE PHOSPHATASE 92 U/L (38-126); ANION GAP 11 (5-19); ASPARTATE AMINO TRANSFERASE 16 U/L (14-36); BILIRUBIN,DIRECT 0.3 mg/dL (0.0-0.4); BILIRUBIN,TOTAL 0.5 mg/dL (0.2-1.3); BLOOD UREA NITROGEN 13 mg/dL (7-20); CALCIUM 8.3 mg/dL (8.4-10.2); CARBON DIOXIDE 14 mmol/L (22-30); CHLORIDE 116 mmol/L (98-107); GLUCOSE 90 mg/dL (75-110); POTASSIUM 3.3 mmol/L (3.6-5.0); TOTAL PROTEIN 4.7 g/dL (6.3-8.2)
[2019-11-06] MEDS: ACETAMINOPHEN 325 MG TABLET PO PRN ×2 (06:13→21:59)
[2019-11-06] MEDS: PANTOPRAZOLE SODIUM 40 MG TABLET.DR PO SCH ×2 (06:13→17:07)
[2019-11-06] MEDS: PIPERACILLIN SODIUM/TAZOBACTAM 3.375 GM in NORMAL SALINE 100 ML IV SCH ×4 (06:14→23:35)
[2019-11-06] MEDS ORDERED: POTASSIUM CHLORIDE 10 MEQ TABLET.ER PO ONE ×2 (07:04→10:14)
[2019-11-06] MEDS: IPRATROPIUM/ALBUTEROL 0.5-2.5 MG/3 ML AMPUL NEB SCH ×3 (08:33→20:11)
[2019-11-06] MEDS: GUAIFENESIN 600 MG TABLET.SA PO SCH ×2 (10:04→21:56)
[2019-11-06] MEDS: DULOXETINE HCL 30 MG CAPSULE.DR PO SCH ×2 (10:04→21:56)
[2019-11-06] MEDS: ENOXAPARIN SODIUM INJ 40 MG/0.4 ML DISP.SYRIN SUBCUT SCH (10:05)
[2019-11-06] MEDS: DOCUSATE SODIUM 100 MG CAPSULE PO SCH ×2 (10:05→17:07)
[2019-11-06] MEDS: NICOTINE 14 MG/24 HR PATCH.TD24 TD SCH (10:05)
[2019-11-06] MEDS: NORMAL SALINE 1000 ML 1,000 ML IV PRN ×2 (10:06→10:10)
[2019-11-06] MEDS: FLUTICASONE/UMECLIDIN/VILANTER 100-62.5-25 MCG/DOSE IH SCH (10:06)
[2019-11-06] MEDS: LIDOCAINE 5% (700 MG) TRANSDERMAL ADH..PATCH TP SCH (10:06)
[2019-11-06] MEDS: LURASIDONE HCL 60 MG TABLET PO SCH (10:06)
--- NOTE | 2019-11-06 13:42 | PDOC PROGRESS REPORT ---
Subjective Progress Note for:: 11/06/19 Subjective:: ANETTE BOWMAN is a 59 year old female past medical history of tobacco abuse, non-oxygen dependent COPD presenting to ED complaining of right-sided pleuritic chest pain, fever and chills. Patient is stating that about 3 weeks ago she was having foul-smelling urine, went to PCP sample was taken, culture came back negative, and the same time she was noted to be coughing and feeling congested, was a started cefdinir and steroids and albuterol inhaler, she felt somewhat better however after antibiotic finished she started to notice recurrence of nonproductive cough associated with flulike symptoms, some rufr-qgx-nhvcfmk medication did not feel any better, the next day started feeling right-sided sharp, pleuritic chest pain, worse with breathing and movement, subjective fever and chills, one episode of vomiting and diarrhea with nausea and persistent low appetite. In ED she was found to have significant neutrophilic leukocytosis, chest x-ray positive for consolidation in the right upper lobe and elevated BUN and creatinine. Hospitalist was consulted for admission. 11/04/2019. No acute events overnight. Patient denies having any fever overnight however still complaining of productive cough and right sided pleuritic chest pain, denies any fever, chills, nausea, vomiting, diarrhea, constipation or any urinary symptoms. 11/05/2019. No acute events overnight. Patient is still complaining of productive cough with right-sided anterior chest pleuritic chest pain, otherwise denies any shortness of breath, nausea, vomiting, diarrhea, constipation or any urinary symptoms. 11/06/2019. No acute events overnight. Right chest pleuritic pain improving, patient stating that she is improving but she gets easily winded, still complaining of nonproductive cough, denies any fever, chills, nausea, vomiting, diarrhea, constipation or any urinary symptoms. Reason For Visit: PNEUMONIA,IGLESIA Physical Exam Vital Signs: Temp Pulse Resp BP Pulse Ox 97.5 F 85 17 135/79 H 98 11/06/19 11:21 11/06/19 11:21 11/06/19 11:21 11/06/19 11:21 11/06/19 11:21 Intake & Output 11/05/19 11/06/19 11/07/19 06:59 06:59 07:59 Intake Total 5404 3482 942 Output Total 2800 3500 Balance 2604 -18 942 Weight 68.4 kg 67.2 kg General appearance: PRESENT: no acute distress, well-developed, well-nourished Head exam: PRESENT: atraumatic, normocephalic Respiratory exam: PRESENT: prolonged expiratory phas, wheezes. ABSENT: rales, rhonchi Cardiovascular exam: PRESENT: RRR. ABSENT: diastolic murmur, rubs, systolic murmur GI/Abdominal exam: PRESENT: normal bowel sounds, soft. ABSENT: distended, guarding, mass, organolmegaly, rebound, tenderness Neurological exam: PRESENT: alert, awake, oriented to person, oriented to place, oriented to time, oriented to situation, CN II-XII grossly intact. ABSENT: motor sensory deficit Results Laboratory Results: 11/06/19 04:47 11/06/19 04:47 11/06/19 11/06/19 04:47 04:47 WBC 11.5 H RBC 3.57 L Hgb 11.0 L Hct 31.8 L MCV 89 MCH 30.7 MCHC 34.5 RDW 13.9 Plt Count 387 Seg Neutrophils % 77.8 Sodium 140.6 Potassium 3.3 L Chloride 116 H Carbon Dioxide 14 L Anion Gap 11 BUN 13 Creatinine 1.11 Est GFR ( Amer) > 60 Glucose 90 Calcium 8.3 L Total Bilirubin 0.5 AST 16 Alkaline Phosphatase 92 Total Protein 4.7 L Albumin 2.5 L 11/03/19 17:15 Blood Blood Culture (PCR) - Final 11/03/19 19:30 Sputum Gram Stain - Final 11/03/19 19:30 Sputum Sputum Culture - Final Haemophilus Influenzae Morax.(Branhamella)Catarrhalis Reduced Normal Bere 11/03/19 14:47 Troponin I < 0.012 Impressions: Chest X-Ray 11/03/19 14:23 IMPRESSION: Consolidative opacities in the right upper lobe. Correlation with clinical findings is recommended to exclude a pneumonia. Assessment and Plan - Diagnosis (1) Pneumonia Qualifiers: Laterality: right Lung location: upper lobe of lung Is this a current diagnosis for this admission?: Yes Plan: Due to Haemophilus influenza. Sputum culture positive for Haemophilus influenza. Presented with pleuritic chest pain, tachypnea, neutrophilic leukocytosis, productive cough, CXR right upper lobe consolidation. Failed outpatient antibiotic therapy. Rapid flu negative. Continue antibiotics. Will switch to p.o. upon discharge. (2) Chronic obstructive pulmonary disease with acute exacerbation Is this a current diagnosis for this admission?: Yes Plan: Improving. SPO2 WNL on RA. Diffuse wheezing with prolonged expiratory phase on physical examination. Acutely exacerbated mostly due to underlying pneumonia. Continue duo nebs, pulmonary toileting, flutter valve, incentive spirometry, empiric IV antibiotics, IV steroids PRN BiPAP. (3) Acute kidney injury Is this a current diagnosis for this admission?: Yes Plan: Resolved. Prerenal most like due to low p.o. intake. Monitor volume status and electrolytes replace as needed. Avoid nephrotoxic meds. (4) Dehydration Is this a current diagnosis for this admission?: Yes Plan: Volume replete. Most likely due to low p.o. intake complicated by recent vomiting.
[2019-11-06] MEDS: METHYLPREDNISOLONE INJ 40 MG/1 ML SDV IV SCH ×2 (14:15→21:56)
[2019-11-06] MEDS: TEMAZEPAM 15 MG CAPSULE PO PRN (23:35)
[2019-11-07] MEDS: PANTOPRAZOLE SODIUM 40 MG TABLET.DR PO SCH ×2 (05:24→17:00)
[2019-11-07] MEDS: METHYLPREDNISOLONE INJ 40 MG/1 ML SDV IV SCH ×3 (05:24→21:26)
[2019-11-07] MEDS: PIPERACILLIN SODIUM/TAZOBACTAM 3.375 GM in NORMAL SALINE 100 ML IV SCH ×4 (05:25→23:08)
[2019-11-07] MEDS: IPRATROPIUM/ALBUTEROL 0.5-2.5 MG/3 ML AMPUL NEB SCH ×3 (07:59→19:44)
[2019-11-07] MEDS: LURASIDONE HCL 60 MG TABLET PO SCH (10:33)
[2019-11-07] MEDS: DULOXETINE HCL 30 MG CAPSULE.DR PO SCH ×2 (10:33→21:25)
[2019-11-07] MEDS: GUAIFENESIN 600 MG TABLET.SA PO SCH ×2 (10:33→21:25)
[2019-11-07] MEDS: DOCUSATE SODIUM 100 MG CAPSULE PO SCH ×2 (10:33→17:00)
[2019-11-07] MEDS: FLUTICASONE/UMECLIDIN/VILANTER 100-62.5-25 MCG/DOSE IH SCH (10:33)
[2019-11-07] MEDS: LIDOCAINE 5% (700 MG) TRANSDERMAL ADH..PATCH TP SCH (10:33)
[2019-11-07] MEDS: NICOTINE 14 MG/24 HR PATCH.TD24 TD SCH (10:35)
[2019-11-07] MEDS: ENOXAPARIN SODIUM INJ 40 MG/0.4 ML DISP.SYRIN SUBCUT SCH (10:41)
[2019-11-07 11:26] LABS: ABSOLUTE BASOPHILS # (AUTO) 0.1 10^3/uL (0.0-0.2); ABSOLUTE LYMPHOCYTES (AUTO) 0.9 10^3/uL (0.5-4.7); ABSOLUTE MONOCYTES (AUTO) 0.6 10^3/uL (0.1-1.4); ABSOLUTE NEUT (AUTO) 11.9 10^3/uL (1.7-8.2); BASOPHILS % (AUTO) 0.4 % (0-2); HEMATOCRIT 32.8 % (36.0-47.0); HEMOGLOBIN 11.3 g/dL (12.0-15.5); LYMPHOCYTES % (AUTO) 6.9 % (13-45); MEAN CORPUSCULAR HEMOGLOBIN 30.6 pg (27.0-33.4); MEAN CORPUSCULAR HGB CONC 34.6 g/dL (32.0-36.0); MEAN CORPUSCULAR VOLUME 88 fl (80-97); MONOCYTES % (AUTO) 4.6 % (3-13); PLATELET COUNT 470 10^3/uL (150-450); RED BLOOD COUNT 3.71 10^6/uL (3.72-5.28); RED CELL DISTRIBUTION WIDTH 13.6 % (11.5-14.0); SEGMENTED NEUTROPHILS % (AUTO) 88.1 % (42-78); TOTAL CELLS COUNTED % (AUTO) 100 %; WHITE BLOOD COUNT 13.5 10^3/uL (4.0-10.5)
[2019-11-07 11:39] LABS: ANION GAP 13 (5-19); BLOOD UREA NITROGEN 16 mg/dL (7-20); CARBON DIOXIDE 14 mmol/L (22-30); CHLORIDE 112 mmol/L (98-107); GLUCOSE 194 mg/dL (75-110); POTASSIUM 3.4 mmol/L (3.6-5.0)
--- NOTE | 2019-11-07 14:47 | PDOC PROGRESS REPORT ---
Subjective Progress Note for:: 11/07/19 Subjective:: ANETTE BOWMAN is a 59 year old female past medical history of tobacco abuse, non-oxygen dependent COPD presenting to ED complaining of right-sided pleuritic chest pain, fever and chills. Patient is stating that about 3 weeks ago she was having foul-smelling urine, went to PCP sample was taken, culture came back negative, and the same time she was noted to be coughing and feeling congested, was a started cefdinir and steroids and albuterol inhaler, she felt somewhat better however after antibiotic finished she started to notice recurrence of nonproductive cough associated with flulike symptoms, some ehcf-kax-hlzbmdw medication did not feel any better, the next day started feeling right-sided sharp, pleuritic chest pain, worse with breathing and movement, subjective fever and chills, one episode of vomiting and diarrhea with nausea and persistent low appetite. In ED she was found to have significant neutrophilic leukocytosis, chest x-ray positive for consolidation in the right upper lobe and elevated BUN and creatinine. Hospitalist was consulted for admission. 11/04/2019. No acute events overnight. Patient denies having any fever overnight however still complaining of productive cough and right sided pleuritic chest pain, denies any fever, chills, nausea, vomiting, diarrhea, constipation or any urinary symptoms. 11/05/2019. No acute events overnight. Patient is still complaining of productive cough with right-sided anterior chest pleuritic chest pain, otherwise denies any shortness of breath, nausea, vomiting, diarrhea, constipation or any urinary symptoms. 11/06/2019. No acute events overnight. Right chest pleuritic pain improving, patient stating that she is improving but she gets easily winded, still complaining of nonproductive cough, denies any fever, chills, nausea, vomiting, diarrhea, constipation or any urinary symptoms. 11/07/2019. No acute events overnight. Moderate improvement in right-sided pleuritic chest pain, cough is improving, still complaining of getting easily winded when active, denies any fever, chills, nausea, vomiting, diarrhea, constipation or any urinary symptoms. Blood culture positive for Acinetobacter species, unfortunately ID specialist not available over the weekend, will consult tomorrow for further recommendation. Possible discharge home tomorrow. Reason For Visit: PNEUMONIA,IGLESIA Physical Exam Vital Signs: Temp Pulse Resp BP Pulse Ox 97.6 F 84 16 116/78 98 11/07/19 12:37 11/07/19 14:09 11/07/19 14:09 11/07/19 12:37 11/07/19 14:09 Intake & Output 11/06/19 11/07/19 11/08/19 05:59 06:59 06:59 Intake Total 240 Output Total 400 Balance -160 Weight General appearance: PRESENT: no acute distress, well-developed, well-nourished Head exam: PRESENT: atraumatic, normocephalic Eye exam: PRESENT: conjunctiva pink, EOMI, PERRLA. ABSENT: scleral icterus Ear exam: PRESENT: normal external ear exam Mouth exam: PRESENT: moist, tongue midline Neck exam: ABSENT: carotid bruit, JVD, lymphadenopathy, thyromegaly Respiratory exam: PRESENT: clear to auscultation fabiana, wheezes - Right upper lobe. ABSENT: rales, rhonchi Cardiovascular exam: PRESENT: RRR. ABSENT: diastolic murmur, rubs, systolic murmur Pulses: PRESENT: normal dorsalis pedis pul Vascular exam: PRESENT: normal capillary refill GI/Abdominal exam: PRESENT: normal bowel sounds, soft. ABSENT: distended, gua rding, mass, organolmegaly, rebound, tenderness Rectal exam: PRESENT: deferred Extremities exam: PRESENT: full ROM. ABSENT: calf tenderness, clubbing, pedal edema Neurological exam: PRESENT: alert, awake, oriented to person, oriented to place, oriented to time, oriented to situation, CN II-XII grossly intact. ABSENT: georgie r sensory deficit Psychiatric exam: PRESENT: appropriate affect, normal mood. ABSENT: homicidal ideation, suicidal ideation Skin exam: PRESENT: dry, intact, warm. ABSENT: cyanosis, rash Results Laboratory Results: 11/07/19 11:11 11/07/19 11:11 11/07/19 11/07/19 11:11 11:11 WBC 13.5 H RBC 3.71 L Hgb 11.3 L Hct 32.8 L MCV 88 MCH 30.6 MCHC 34.6 RDW 13.6 Plt Count 470 H Seg Neutrophils % 88.1 H Sodium 139.0 Potassium 3.4 L Chloride 112 H Carbon Dioxide 14 L Anion Gap 13 BUN 16 Creatinine 0.95 Est GFR ( Amer) > 60 Glucose 194 H Calcium 9.0 11/03/19 17:15 Blood Blood Culture (PCR) - Final 11/03/19 14:47 Troponin I < 0.012 Impressions: Chest X-Ray 11/03/19 14:23 IMPRESSION: Consolidative opacities in the right upper lobe. Correlation with clinical findings is recommended to exclude a pneumonia. Assessment and Plan - Diagnosis (1) Pneumonia Qualifiers: Laterality: right Lung location: upper lobe of lung Is this a current diagnosis for this admission?: Yes Plan: Due to Haemophilus influenza. Sputum culture positive for Haemophilus influenza. Presented with pleuritic chest pain, tachypnea, neutrophilic leukocytosis, productive cough, CXR right upper lobe consolidation. Failed outpatient antibiotic therapy. Rapid flu negative. Continue antibiotics. Switch to p.o. antibiotics upon discharge. (2) Chronic obstructive pulmonary disease with acute exacerbation Is this a current diagnosis for this admission?: Yes Plan: Improving. SPO2 WNL on RA. Expiratory wheezes on right upper lung. Acutely exacerbated mostly due to underlying pneumonia. Continue duo nebs, pulmonary toileting, flutter valve, incentive spirometry, empiric IV antibiotics, IV steroids PRN BiPAP. (3) Acute kidney injury Is this a current diagnosis for this admission?: Yes Plan: Resolved. Prerenal most like due to low p.o. intake. Monitor volume status and electrolytes replace as needed. Avoid nephrotoxic meds. (4) Dehydration Is this a current diagnosis for this admission?: Yes Plan: Volume replete. Most likely due to low p.o. intake complicated by recent vomiting. (5) Gram-negative bacteremia Is this a current diagnosis for this admission?: Yes Plan: Blood culture on admission growing Acinetobacter species pansensitive. Repeat blood cultures are negative. Given the fact that patient is growing Acinetobacter she will need ID consult for antibiotic recommendations. Unfortunately ID consult not available over the weekend. ID consult has been placed through pharmacy which will hopefully be available tomorrow. Patient currently on Zosyn for underlying pneumonia. Continue current antibiotics until ID consult available. Follow-up ID recommendation and make proper changes before discharge.
[2019-11-07] MEDS: ACETAMINOPHEN 325 MG TABLET PO PRN (21:25)
[2019-11-07] MEDS: TEMAZEPAM 15 MG CAPSULE PO PRN (23:08)
[2019-11-08] MEDS: METHYLPREDNISOLONE INJ 40 MG/1 ML SDV IV SCH (05:21)
[2019-11-08] MEDS: PANTOPRAZOLE SODIUM 40 MG TABLET.DR PO SCH (05:21)
[2019-11-08] MEDS: ACETAMINOPHEN 325 MG TABLET PO PRN (05:21)
[2019-11-08] MEDS: PIPERACILLIN SODIUM/TAZOBACTAM 3.375 GM in NORMAL SALINE 100 ML IV SCH ×2 (05:21→11:22)
[2019-11-08] MEDS: IPRATROPIUM/ALBUTEROL 0.5-2.5 MG/3 ML AMPUL NEB SCH (08:25)
[2019-11-08] MEDS: DULOXETINE HCL 30 MG CAPSULE.DR PO SCH (09:39)
[2019-11-08] MEDS: GUAIFENESIN 600 MG TABLET.SA PO SCH (09:39)
[2019-11-08] MEDS: LIDOCAINE 5% (700 MG) TRANSDERMAL ADH..PATCH TP SCH (09:39)
[2019-11-08] MEDS: LURASIDONE HCL 60 MG TABLET PO SCH (09:39)
[2019-11-08] MEDS: DOCUSATE SODIUM 100 MG CAPSULE PO SCH (09:39)
[2019-11-08] MEDS: ENOXAPARIN SODIUM INJ 40 MG/0.4 ML DISP.SYRIN SUBCUT SCH (09:40)
[2019-11-08] MEDS: NICOTINE 14 MG/24 HR PATCH.TD24 TD SCH (09:40)
[2019-11-08] MEDS: FLUTICASONE/UMECLIDIN/VILANTER 100-62.5-25 MCG/DOSE IH SCH (09:41)
--- NOTE | 2019-11-08 11:51 | PDOC DISCHARGE SUMMARY ---
Impression - Admit/DC Date/PCP Admission Date/Primary Care Provider: 11/03/19 17:50 Discharge Date: 11/08/19 - Discharge Diagnosis (1) Acute kidney injury Is this a current diagnosis for this admission?: Yes (2) Chronic obstructive pulmonary disease with acute exacerbation Is this a current diagnosis for this admission?: Yes (3) Dehydration Is this a current diagnosis for this admission?: Yes (4) Gram-negative bacteremia Is this a current diagnosis for this admission?: Yes (5) Pneumonia Is this a current diagnosis for this admission?: Yes - Additional Information Discharge Diet: Regular Discharge Activity: Activity As Tolerated Referrals: LÁZARO VILA DO [NO LOCAL MD] - 11/16/19 4:00 pm Prescriptions: Amox Tr/Potassium Clavulanate [Augmentin 500-125 Tablet] 1 tab PO Q8 6 Days tablet Budesonide/Formoterol Fumarate [Symbicort Hfa 160-4.5 Mcg Inhaler 6 gm] 1 puff IH Q12 #1 inhaler Home Medications: Albuterol Sulfate [Ventolin Hfa 8 gm Mdi] 2 puff IH Q6HP PRN 11/03/19 Alprazolam [Xanax 0.5 mg Tablet] 0.5 mg PO QIDP PRN 11/03/19 Duloxetine HCl [Cymbalta] 60 mg PO BID 11/03/19 Fluticasone/Umeclidin/Vilanter [Trelegy 100-62.5-25 Mcg Ellipta 14 Dose/Dpi] 1 puff IH DAILY 11/03/19 Lurasidone HCl [Latuda 60 mg Tablet] 60 mg PO DAILY 11/03/19 Amox Tr/Potassium Clavulanate [Augmentin 500-125 Tablet] 1 tab PO Q8 6 Days tablet 11/08/19 Budesonide/Formoterol Fumarate [Symbicort Hfa 160-4.5 Mcg Inhaler 6 gm] 1 puff IH Q12 #1 inhaler 11/08/19 History of Present Illiness History of Present Illness: ANETTE BOWMAN is a 59 year old female past medical history of tobacco abuse, non-oxygen dependent COPD presenting to ED complaining of right-sided pleuritic chest pain, fever and chills. Patient is stating that about 3 weeks ago she was having foul-smelling urine, went to PCP sample was taken, culture came back negative, and the same time she was noted to be coughing and feeling congested, was a started cefdinir and steroids and albuterol inhaler, she felt somewhat better however after antibiotic finished she started to notice recurrence of nonproductive cough associated with flulike symptoms, some [id number] medication did not feel any better, the next day started feeling right-sided sharp, pleuritic chest pain, worse with breathing and movement, subjective fever and chills, one episode of vomiting and diarrhea with nausea and persistent low appetite. In ED she was found to have significant neutrophilic leukocytosis, chest x-ray positive for consolidation in the right upper lobe and elevated BUN and creatinine. Hospitalist was consulted for admission. Hospital Course Hospital Course: Patient was admitted after noted to have a right upper lobe pneumonia on chest x-ray. She was also noted to be having a COPD exacerbation and started on breathing treatments and steroids. Blood work revealed significant leukocytosis of 29.5 on admission. Patient was started on IV antibiotics for treatment of her pneumonia. Blood culture was positive for Acinetobacter and coagulase- negative staph. Sputum culture was positive for Moraxella and Haemophilus influenza. Patient's leukocytosis has improved since admission though has not fully normalized because patient was placed on IV Solu-Medrol. Patient's respiratory status is a lot better and patient has been able to tolerate room air and feels that her breathing is now at baseline. Sensitivity reports for all isolated bacteria from sputum and blood cultures show good susceptibility to Augmentin. Repeat blood cultures have all been negative. Literature reviewed regarding Acinetobacter shows that the recommendation for susceptible isolate is treatment for 10 to 14 days if bacteremic. No other work-up recommended. I have discharge patient on Augmentin for 6 more days to complete a total of 11 days of therapy. I have also started patient on Symbicort for treatment of her COPD. No need for more steroids as patient has been on Solu-Medrol for the past 5 days. Patient is safe and stable to be discharged home. Physical Exam Vital Signs: Temp Pulse Resp BP Pulse Ox 98.3 F 82 14 146/87 H 94 11/08/19 07:56 11/08/19 08:26 11/08/19 08:26 11/08/19 07:56 11/08/19 08:26 Intake & Output 03/04/2011/08/19 11/09/19 06:59 06:59 06:59 Intake Total 880 Output Total 2200 Balance -1320 Weight 67.6 kg General appearance: PRESENT: no acute distress, cooperative Neck exam: ABSENT: JVD Respiratory exam: PRESENT: clear to auscultation fabiana Cardiovascular exam: PRESENT: +S1, +S2 GI/Abdominal exam: PRESENT: soft. ABSENT: rebound, rigid, tenderness Neurological exam: PRESENT: alert, awake, oriented to person, oriented to place, oriented to time Results Laboratory Results: WBC 13.5 10^3/uL (4.0-10.5) H 11/07/19 11:11 RBC 3.71 10^6/uL (3.72-5.28) L 11/07/19 11:11 Hgb 11.3 g/dL (12.0-15.5) L 11/07/19 11:11 Hct 32.8 % (36.0-47.0) L 11/07/19 11:11 MCV 88 fl (80-97) 11/07/19 11:11 MCH 30.6 pg (27.0-33.4) 11/07/19 11:11 MCHC 34.6 g/dL (32.0-36.0) 11/07/19 11:11 RDW 13.6 % (11.5-14.0) 11/07/19 11:11 Plt Count 470 10^3/uL (150-450) H 11/07/19 11:11 Lymph % (Auto) 6.9 % (13-45) L 11/07/19 11:11 [place] % (Auto) 4.6 % (3-13) 11/07/19 11:11 Eos % (Auto) 0.0 % (0-6) 11/07/19 11:11 Baso % (Auto) 0.4 % (0-2) 11/07/19 11:11 Absolute Neuts (auto) 11.9 10^3/uL (1.7-8.2) H 11/07/19 11:11 Absolute Lymphs (auto) 0.9 10^3/uL (0.5-4.7) 11/07/19 11:11 Absolute Monos (auto) 0.6 10^3/uL (0.1-1.4) 11/07/19 11:11 Absolute Eos (auto) 0.0 10^3/uL (0.0-0.6) 11/07/19 11:11 Absolute Basos (auto) 0.1 10^3/uL (0.0-0.2) 11/07/19 11:11 Total Counted 100 11/03/19 14:47 Seg Neutrophils % 88.1 % (42-78) H 11/07/19 11:11 Seg Neuts % (Manual) 95 % (42-78) H 11/03/19 14:47 Band Neutrophils % 1 % (3-5) L 11/03/19 14:47 Lymphocytes % (Manual) 2 % (13-45) L 11/03/19 14:47 Monocytes % (Manual) 2 % (3-13) L 11/03/19 14:47 Eosinophils % (Manual) 0 % (0-6) 11/03/19 14:47 Basophils % (Manual) 0 % (0-2) 11/03/19 14:47 Abs Neuts (Manual) 28.3 10^3/uL (1.7-8.2) H 11/03/19 14:47 Abs Lymphs (Manual) 0.6 10^3/uL (0.5-4.7) 11/03/19 14:47 Abs Monocytes (Manual) 0.6 10^3/uL (0.1-1.4) 11/03/19 14:47 Absolute Eos (Manual) 0.0 10^3/uL (0.0-0.6) 11/03/19 14:47 Abs Basophils (Manual) 0.0 10^3/uL (0.0-0.2) 11/03/19 14:47 Toxic Granulation 1+ 11/03/19 14:47 Platelet Comment ADEQUATE 11/03/19 14:47 Sodium 139.0 mmol/L (137-145) 11/07/19 11:11 Potassium 3.4 mmol/L (3.6-5.0) L 11/07/19 11:11 Chloride 112 mmol/L (98-107) H 11/07/19 11:11 Carbon Dioxide 14 mmol/L (22-30) L 11/07/19 11:11 Anion Gap 13 (5-19) 11/07/19 11:11 BUN 16 mg/dL (7-20) 11/07/19 11:11 Creatinine 0.95 mg/dL (0.52-1.25) 11/07/19 11:11 Est GFR ( Amer) > 60 (>60) 11/07/19 11:11 Est GFR (MDRD) Non-Af > 60 (>60) 11/07/19 11:11 Glucose 194 mg/dL (75-110) H 11/07/19 11:11 Hemoglobin A1c % 5.4 % (4.7-6.0) 11/04/19 05:13 Lactic Acid 1.8 mmol/L (0.7-2.1) 11/03/19 17:15 Calcium 9.0 mg/dL (8.4-10.2) 11/07/19 11:11 Magnesium 2.2 mg/dL (1.6-2.3) 11/04/19 05:13 Total Bilirubin 0.5 mg/dL (0.2-1.3) 11/06/19 04:47 Direct Bilirubin 0.3 mg/dL (0.0-0.4) 11/06/19 04:47 Neonat Total Bilirubin Not Reportable 11/06/19 04:47 Neonat Direct Bilirubin Not Reportable 11/06/19 04:47 Neonat Indirect Bili Not Reportable 11/06/19 04:47 AST 16 U/L (14-36) 11/06/19 04:47 ALT 15 U/L (<35) 11/06/19 04:47 Alkaline Phosphatase 92 U/L (38-126) 11/06/19 04:47 Troponin I < 0.012 ng/mL 11/03/19 14:47 Total Protein 4.7 g/dL (6.3-8.2) L 11/06/19 04:47 Albumin 2.5 g/dL (3.5-5.0) L 11/06/19 04:47 Triglycerides 264 mg/dL (<150) H 11/04/19 05:13 Cholesterol 130.16 mg/dL (0-200) 11/04/19 05:13 LDL Cholesterol Direct 48 mg/dL (<100) 11/04/19 05:13 VLDL Cholesterol 52.8 mg/dL (10-31) H 11/04/19 05:13 HDL Cholesterol 16 mg/dL (>40) L 11/04/19 05:13 Lipase 20.0 U/L (23-300) L 11/03/19 14:47 TSH 1.92 uIU/mL (0.47-4.68) 11/04/19 05:13 PTH Intact 73.7 pg/mL (10.0-65.0) H 11/03/19 18:46 Urine Color YELLOW 11/03/19 14:47 Urine Appearance SLIGHTLY-CLOUDY 11/03/19 14:47 Urine pH 5.0 (5.0-9.0) 11/03/19 14:47 Ur Specific [place] 1.019 11/03/19 14:47 Urine Protein 100 mg/dL (NEGATIVE) H 11/03/19 14:47 Urine Glucose (UA) 50 mg/dL (NEGATIVE) H 11/03/19 14:47 Urine Ketones NEGATIVE mg/dL (NEGATIVE) 11/03/19 14:47 Urine Blood SMALL (NEGATIVE) H 11/03/19 14:47 Urine Nitrite (Reflex) NEGATIVE (NEGATIVE) 11/03/19 14:47 Urine Bilirubin NEGATIVE (NEGATIVE) 11/03/19 14:47 Urine Urobilinogen NEGATIVE mg/dL (<2.0) 11/03/19 14:47 Leukocyte Esterase Rfl NEGATIVE (NEGATIVE) 11/03/19 14:47 Urine RBC (Auto) 1 /HPF 11/03/19 14:47 U Hyaline Cast (Auto) 1 /LPF 11/03/19 14:47 Urine WBC (Reflex) 9 /HPF 11/03/19 14:47 Squamous Epi Cells Auto 18 /HPF 11/03/19 14:47 Urine Mucus (Auto) RARE /LPF 11/03/19 14:47 Urine Ascorbic Acid NEGATIVE (NEGATIVE) 11/03/19 14:47 Influenza A (Rapid) NEGATIVE (NEGATIVE) 11/03/19 19:30 Influenza B (Rapid) NEGATIVE (NEGATIVE) 11/03/19 19:30 11/03/19 14:47 Troponin I < 0.012 Impressions: Chest X-Ray 11/03/19 14:23 IMPRESSION: Consolidative opacities in the right upper lobe. Correlation with clinical findings is recommended to exclude a pneumonia. Plan Time Spent: Less than 30 Minutes Stroke Is this a Stroke Patient?: No Acute Heart Failure - Is this a Heart Failure Patient?: No
[2019-11-08 12:07] VITALS: BP 120/58
--- NOTE | 2019-11-08 13:42 | Progress Note ---
Provider Note Provider Note: [facility] ID Telephone Advice Consultation Chart reviewed. This is a 59-year-old woman with COPD and chronic smoking who was initially evaluated as outpatient for a lower respiratory tract infection/bronchitis. She received cefdinir and steroids. Per notes, she was feeling better while on antibiotics, but once finished, her symptoms recurred and she started experiencing right chest pain. She was evaluated in the ED, she had 29k WBC. CXR consistent with right upper lobe pneumonia. She received zosyn with adequate response. Leukocytosis improved. Respiratory symptoms improved. Blood cultures had Acinetobacter and Staphylococcus cohnii. Patient is ready to be discharged home. ID consulted for recommendations. PMH: COPD Chronic Smoking Allergies: oxycodone [From Percocet] Adverse Reaction (Verified 11/03/19 14:15) Medications: Albuterol Sulfate [Ventolin Hfa 8 gm Mdi] 2 puff IH Q6HP PRN 11/03/19 Alprazolam [Xanax 0.5 mg Tablet] 0.5 mg PO QIDP PRN 11/03/19 Duloxetine HCl [Cymbalta] 60 mg PO BID 11/03/19 Fluticasone/Umeclidin/Vilanter [Trelegy 100-62.5-25 Mcg Ellipta 14 Dose/Dpi] 1 puff IH DAILY 11/03/19 Lurasidone HCl [Latuda 60 mg Tablet] 60 mg PO DAILY 11/03/19 Vital Signs: Temp Pulse Resp BP Pulse Ox 97.9 F 79 14 120/58 L 99 11/08/19 12:05 11/08/19 12:05 11/08/19 12:05 11/08/19 12:05 11/08/19 12:05 Intake & Output 11/07/19 11/08/19 11/09/19 06:59 06:59 06:59 Intake Total 880 460 Output Total 2200 700 Balance -1320 -240 Weight 67.6 kg Weight/Height Weight 67.6 kg Height 5 ft 4 in Laboratories: 11/07/19 11:11 11/07/19 11:11 MCV 88 fl (80-97) 11/07/19 11:11 MCH 30.6 pg (27.0-33.4) 11/07/19 11:11 MCHC 34.6 g/dL (32.0-36.0) 11/07/19 11:11 RDW 13.6 % (11.5-14.0) 11/07/19 11:11 Seg Neutrophils % 88.1 % (42-78) H 11/07/19 11:11 Chloride 112 mmol/L (98-107) H 11/07/19 11:11 Carbon Dioxide 14 mmol/L (22-30) L 11/07/19 11:11 Anion Gap 13 (5-19) 11/07/19 11:11 Est GFR ( Amer) > 60 (>60) 11/07/19 11:11 Glucose 194 mg/dL (75-110) H 11/07/19 11:11 Lactic Acid 1.8 mmol/L (0.7-2.1) 11/03/19 17:15 Calcium 9.0 mg/dL (8.4-10.2) 11/07/19 11:11 Magnesium 2.2 mg/dL (1.6-2.3) 11/04/19 05:13 Total Bilirubin 0.5 mg/dL (0.2-1.3) 11/06/19 04:47 AST 16 U/L (14-36) 11/06/19 04:47 Alkaline Phosphatase 92 U/L (38-126) 11/06/19 04:47 Total Protein 4.7 g/dL (6.3-8.2) L 11/06/19 04:47 Albumin 2.5 g/dL (3.5-5.0) L 11/06/19 04:47 Triglycerides 264 mg/dL (<150) H 11/04/19 05:13 Cholesterol 130.16 mg/dL (0-200) 11/04/19 05:13 LDL Cholesterol Direct 48 mg/dL (<100) 11/04/19 05:13 VLDL Cholesterol 52.8 mg/dL (10-31) H 11/04/19 05:13 HDL Cholesterol 16 mg/dL (>40) L 11/04/19 05:13 Lipase 20.0 U/L (23-300) L 11/03/19 14:47 TSH 1.92 uIU/mL (0.47-4.68) 11/04/19 05:13 PTH Intact 73.7 pg/mL (10.0-65.0) H 11/03/19 18:46 Urine Color YELLOW 11/03/19 14:47 Urine Appearance SLIGHTLY-CLOUDY 11/03/19 14:47 Urine pH 5.0 (5.0-9.0) 11/03/19 14:47 Ur Specific [place] 1.019 11/03/19 14:47 Urine Protein 100 mg/dL (NEGATIVE) H 11/03/19 14:47 Urine Glucose (UA) 50 mg/dL (NEGATIVE) H 11/03/19 14:47 Urine Ketones NEGATIVE mg/dL (NEGATIVE) 11/03/19 14:47 Urine Blood SMALL (NEGATIVE) H 11/03/19 14:47 Urine RBC (Auto) 1 /HPF 11/03/19 14:47 11/03/19 14:47 Troponin I < 0.012 Microbiology: Blood Cultures 3/4 Acinetobacter, CONS (1 set only), NGTD (2nd set) 3/5 NGTD Sputum Culture 3/4 Haemophilus influenzae, Moraxella catarrhalis (B lactamase positive) Radiology: Chest X-Ray 11/03/19 14:23 IMPRESSION: Consolidative opacities in the right upper lobe. Correlation with clinical findings is recommended to exclude a pneumonia. Assessment and Recommendations: Patient evaluated due to right upper lobe pneumonia. Sputum cultures with Haemophilus influenzae and Moraxella catarrhalis. Blood cultures with Acinetobacter and CONS from the same set. He has not been treated for these organisms and repeat blood cultures were negative, therefore high suspicion for skin contamination. For pneumonia, he has responded adequately. Levofloxacin or moxifloxacin are adeqaute. He has been ordered augmentin which it's also adequate for pneumonia. A total of 7-10 would be recommended (including antibiotics received in the hospital). Please call if questions. Nasrin Rebollar MD [facility] ID [id number]
== END 2019-11-08 12:48 | disposition home or self-care (01) | DRG 178 ==
LOC: ER 12:54 → EH 17:50 → 4S 19:02
PROVIDERS: ADMIT Internal Medicine; ATTEND Internal Medicine
DX: J15.8 Pneumonia due to other specified bacteria (principal); N17.9 Acute kidney failure, unspecified; J44.0 Chronic obstructive pulmonary disease with (acute) lower respiratory infection; J44.1 Chronic obstructive pulmonary disease with (acute) exacerbation; J14 Pneumonia due to Hemophilus influenzae; F17.210 Nicotine dependence, cigarettes, uncomplicated; G43.909 Migraine, unspecified, not intractable, without status migrainosus; F32.9 Major depressive disorder, single episode, unspecified; E86.0 Dehydration; Z88.5 Allergy status to narcotic agent; Z79.899 Other long term (current) drug therapy; Z79.51 Long term (current) use of inhaled steroids
CPT/HCPCS: 36415; 71046; 80048; 80053; 80061; 81001; 83036; 83605; 83690; 83735; 83970; 84443; 84484; 85025; 87040; 87070; 87077; 87150; 87186; 87205; 87804; 93005; 93010; 94667; 94668; 96365; 99291; J0696; J1650; J2270; J2405; J2543; J2920; J3490; J7030; J7050; J7620